=== PATIENT | female | born 1980 | race Caucasian/White ===

== ENCOUNTER → 2017-04-17 | Outpatient (CLI) | payer BC ==
[~2017-04-17] MED LIST: ALBU8I INH; AZIT250T3 PO; MULT-65 PO; NORE0.3514 PO
== END ==
LOC: HPND 08:54
PROVIDERS: ATTEND Obstetrics & Gynecology
DX: O09.521 Supervision of elderly multigravida, first trimester (principal); O99.211 Obesity complicating pregnancy, first trimester
CPT/HCPCS: 76813

== ENCOUNTER → 2017-06-05 | Outpatient (CLI) | payer BC | LOC: HPND 07:29 | PROVIDERS: ATTEND Obstetrics & Gynecology | DX: O09.522 Supervision of elderly multigravida, second trimester (principal); O26.892 Other specified pregnancy related conditions, second trimester; O99.212 Obesity complicating pregnancy, second trimester; E66.01 Morbid (severe) obesity due to excess calories; Z68.41 Body mass index [BMI] 40.0-44.9, adult | CPT/HCPCS: 76811 ==

== ENCOUNTER → 2017-06-17 | Outpatient (CLI) | payer BC | LOC: CDED 15:26 | DX: O24.419 Gestational diabetes mellitus in pregnancy, unspecified control (principal) | CPT/HCPCS: 97802 ==

== ENCOUNTER → 2017-07-11 | Outpatient (CLI) | payer BC | LOC: HPND 09:32 | PROVIDERS: ATTEND Obstetrics & Gynecology | DX: O09.522 Supervision of elderly multigravida, second trimester (principal); O99.212 Obesity complicating pregnancy, second trimester; E66.01 Morbid (severe) obesity due to excess calories; Z68.41 Body mass index [BMI] 40.0-44.9, adult; O26.892 Other specified pregnancy related conditions, second trimester | CPT/HCPCS: 76816 ==

== ENCOUNTER 2017-10-10 12:45 | Inpatient (IN) ==
[2017-10-10 14:03] LABS: Baso % (Auto) 0.2 % (0.0-2.0); Eos # (Auto) 0.1 th/mm3 (0.0-0.4); Eos % (Auto) 1.1 % (0.0-4.0); Hematocrit 32.5 % (35.0-46.0); Hemoglobin 10.9 gm/dL (11.6-15.3); Lymph # (Auto) 0.8 th/mm3 (1.0-4.8); Lymph % (Auto) 6.8 % (9.0-44.0); Mean Corpuscular HGB Conc 33.5 % (32.0-36.0); Mean Corpuscular Hemoglobin 28.5 pg (27.0-34.0); Mean Corpuscular Volume 85.2 fL (80.0-100.0); Mean Platelet Volume 10.1 fL (7.0-11.0); Mono # (Auto) 0.6 th/mm3 (0.0-0.9); Mono % (Auto) 5.5 % (0.0-8.0); Neut # (Auto) 10.1 th/mm3 (1.8-7.7); Neut % (Auto) 86.4 % (16.0-70.0); Platelet Count 68 th/mm3 (150-450); Red Blood Count 3.81 mil/mm3 (4.00-5.30); Red Cell Distribution Width 15.7 % (11.6-17.2); White Blood Count 11.7 th/mm3 (4.0-11.0)
[2017-10-10 14:13] LABS: Bacteria,Urine Moderate /hpf; Bilirubin,Urine Negative (Negative); Clarity,Urine Cloudy (Clear); Color,Urine Yellow (Yellw/Straw); Glucose,Urine (UA) Negative (Negative); Leukocyte Esterase,Urine Large (Negative); Nitrite,Urine Negative (Negative); Specific Gravity,Urine 1.008 (1.002-1.035); Squamous Epithelial Cell,Urine 14 /hpf (0-5)
[2017-10-10 14:22] LABS: Alanine Aminotransferase 71 U/L (10-53); Albumin 2.3 g/dL (3.4-5.0); Aspartate Aminotransferase 56 U/L (15-37)
[2017-10-10 14:23] LABS: Alkaline Phosphatase 139 U/L (45-117); Total Protein 6.7 g/dL (6.4-8.2)
[2017-10-10 14:28] LABS: Platelet Morphology Normal (Normal)
[2017-10-10] MEDS ORDERED: Succinylcholine Inj 100 MG/5 ML Syringe IV.PUSH ONE (14:34)
[2017-10-10] MEDS ORDERED: Lidocaine PF 1% Inj 5 ML Syringe INFILTRATN ONE (14:34)
[2017-10-10] MEDS ORDERED: Phenylephrine/NS 1000 MCG/10ML Syringe IV.PUSH ONE (14:34)
[2017-10-10] MEDS ORDERED: Labetalol HCl Inj 100 MG/20 ML Vial ONE (15:00)
[2017-10-10] MEDS ORDERED: Mag Sulf/Water 4 gm/100 ml 100 ML IV.SIG ONE ×2 (15:01→15:15)
[2017-10-10] MEDS ORDERED: Mag Sulf/Water 40 gm/1000 ml 40 GM/1,000 ML BAG IV.CONT ONE (15:02)
--- NOTE | 2017-10-10 15:12 | MH ---
cc: Ulysses Narvaez MD DATE OF ADMISSION: 10/10/2017 ADMITTING DIAGNOSES: 1. 38 weeks. 2. Severe preeclampsia. 3. Gestational diabetes. 4. Chronic hypertension. 5. Morbid obesity. 6. Advanced maternal age. HISTORY OF PRESENT ILLNESS: The patient is a 37-year-old white female, para 0, with a LMP of 01/17/2017, EDC of 10/24/2017. The patient's initial visit, blood pressure was elevated. She was treated with Aldomet with good control throughout the . She was diagnosed with gestational diabetes and has had good control with diet. Her first TM screen and cell-free DNA testing were normal. She has had a rise in blood pressure over the last 3 days. Her PIH labs done on 09/26/2017 were normal. She returned for her BPP today, which was normal of 11/20. Her LFTs from 10/08/2017 showed elevated ALT, AST. Platelet count of 67 had been 140+ 2 weeks ago. She is now admitted for delivery and rechecking of labs. ADDITIONAL PAST MEDICAL HISTORY AND PREVIOUS SURGERY: Cardiac ablation for WPW. ALLERGIES: NONE. TRANSFUSIONS: None. MEDICATIONS: Aldomet 500 mg b.i.d., vitamins, iron. SOCIAL HISTORY: She is . She is employed at [employer]. Alcohol, tobacco and drugs are none. FAMILY HISTORY: Noncontributory. REVIEW OF SYSTEMS: Negative. PHYSICAL EXAMINATION: GENERAL: She is a well-nourished, well-developed white female. VITAL SIGNS: Stable. Blood pressure 142/90, weight 334 pounds, height is 5 feet 10 inches. HEENT: Normal. CHEST: Clear. BREASTS: Symmetrical. ABDOMEN: Enlarged, obese, gravid. PELVIC: Cervix long, thick, and closed. Vertex ballottable. EXTREMITIES: Normal with 1+ edema. NEUROLOGIC: Reflexes normal. ASSESSMENT: As above. PLAN: She is now admitted for delivery by due to her illness, unfavorable cervix and suspected macrosomia. The risks and benefits and complications explained and accepted. Ulysses Narvaez MD [facility]/ , 02:52 PM , 02:59 PM [employer]
[2017-10-10] MEDS ORDERED: Labetalol HCl Inj 100 MG/20 ML Vial IV.PUSH ONE (15:30)
[2017-10-10] MEDS ORDERED: Calcium Chloride Inj 1 GM/10 ML Syringe IV.PUSH PRN (15:31)
[2017-10-10] MEDS ORDERED: Labetalol HCl Inj 100 MG/20 ML Vial IV.PUSH PRN (15:40)
[2017-10-10] MEDS: Mag Sulf/Water 40 gm/1000 ml 40 GM/1,000 ML BAG IV.CONT SCH (15:40)
[2017-10-10 15:58] LABS: Calcium 8.6 mg/dL (8.5-10.1); Chloride 109 meq/L (98-107); Glomerular Filtration Rate Greater Than 89 mL/min (>89); Glucose,Random 75 mg/dL (74-106); Potassium 4.1 meq/L (3.5-5.1); Sodium 140 meq/L (136-145)
[2017-10-10 15:59] LABS: Anion Gap 12 meq/L (5-15); Blood Urea Nitrogen 11 mg/dL (7-18); Carbon Dioxide 19.1 meq/L (21.0-32.0)
[2017-10-10] MEDS ORDERED: Citric Acid/Sodium Citrate Liq 30 ML UDC ONE (17:17)
[2017-10-10] MEDS ORDERED: ceFAZolin 2 GM Premix Inj 2 GM/100 ML BAG IV.SIG SCH (17:50)
[2017-10-10] MEDS ORDERED: Citric Acid/Sodium Citrate Liq 30 ML UDC PO SCH (18:00)
[2017-10-10] MEDS ORDERED: fentaNYL Citrate Inj 100 MCG/2 ML Ampul ONE (18:19)
[2017-10-10] MEDS ORDERED: HYDROmorphone PF Inj 2 MG/ML Vial ONE (18:19)
[2017-10-10] MEDS ORDERED: Oxytocin 30 Units/500ml Premix 30 UNITS/500 ML BAG IV.SIG ONE (18:41)
[2017-10-10] MEDS ORDERED: Senna/Docusate Sodium 8.6/50 MG Tablet PO PRN (18:41)
[2017-10-10] MEDS ORDERED: Simethicone 80 MG Chew Tablet PO PRN (18:41)
[2017-10-10] MEDS ORDERED: HYDROmorphone PF Inj 1 MG/ML Ampul IV.PUSH ONE ×2 (18:44→21:17)
[2017-10-10] MEDS ORDERED: Naloxone Inj 0.4 MG/ML Vial IV.PUSH PRN ×2 (18:44→21:17)
[2017-10-10] MEDS ORDERED: HYDROmorphone PCA Inj 6 MG/30 ML PCA.VIAL PCA ONE (19:43)
--- NOTE | 2017-10-10 19:48 | MP ---
cc: Ulysses Narvaez MD DATE OF OPERATION: 10/10/2017 PREOPERATIVE DIAGNOSES: 1. , 38 weeks. 2. Severe preeclampsia. 3. Gestational diabetes. 4. Chronic hypertension. 5. Morbid obesity. 6. Advanced paternal age, 35. POSTOPERATIVE DIAGNOSES: 1. , 38 weeks. 2. Severe preeclampsia. 3. Gestational diabetes. 4. Chronic hypertension. 5. Morbid obesity. 6. Advanced paternal age, 35. 7. Delivered. PROCEDURE PERFORMED: Primary low transverse section. ANESTHESIA: General endotracheal. SURGEON: Ulysses Narvaez MD CATERPILLAR DRIVER: Lauren. SECOND MEDICAL SCREENER: Chelsea. ESTIMATED BLOOD LOSS: 800 mL FLUIDS: 2.2 liters crystalloid. OBJECTIVE FINDINGS: The patient was prepared for delivery. Bladder was drained by Rowell catheterization. Abdomen was prepped and draped with a panniculus suspension in place and ready to proceed. She received general endotracheal anesthesia, the abdomen was opened through a Pfannenstiel incision using a knife to cut down through skin to the fascia. The fascia opened transversely, stripped from the muscles, rectus muscle split in the midline and the peritoneum opened sharply without incident. The bladder flap was taken down sharply and retracted inferiorly with the Luis Miguel blade. The lower uterine segment was incised transversely with a knife and extended with blunt dissection. There was clear fluid. Baby was in the LOT position. The vacuum extractor was applied to the occiput and used to gently lift the head through the abdominal wound. Mouth was suctioned. The cord clamped and cut. The baby was passed to awaiting team, a viable vigorous female, Apgars were 7 and 9, weight 7 pounds 11 ounces. Cord blood sent for typing, sent for donation and the uterine cavity cleaned with laps. Uterus was exteriorized and closed in 2 layers with a running suture, first with a running locking stitch of 0 Vicryl, second with a running imbricating stitch of Vicryl. On posterior inspection, the uterus, tubes, ovaries were normal in the uterus cavity. Irrigation was performed. No bleeding was evident and the bladder flap was closed with running stitch of 3-0 Vicryl. All laps and retractors were removed. Counts were correct. The anterior peritoneum closed with running stitch of 2-0 Vicryl, the fascia closed with #1 PDS running corner to midline and tied, subcutaneous irrigated with good hemostasis. The subcutaneous was closed with a running 3-0 Vicryl, the skin with subcuticular 3-0 Monocryl. Dermabond covered, dry dressing covered and the patient was awakened and taken to the recovery room in good condition. MD MOLLY Paredes/ct , 06:49 PM , 06:59 PM
[2017-10-10] MEDS ORDERED: Zolpidem Tartrate 5 MG Tablet PO PRN (21:00)
[2017-10-10] MEDS ORDERED: HYDROmorphone PCA Inj 6 MG/30 ML PCA.VIAL PCA PRN (21:17)
[2017-10-10] MEDS: HYDROmorphone PCA Inj 6 MG/30 ML PCA.VIAL PCA PRN (21:27)
[2017-10-10 23:07] LABS: Amphetamine Screen,Urine Neg (Neg); Barbiturate Screen,Urine Neg (Neg); Cannabinoid Screen,Urine Neg (Neg); Cocaine Screen,Urine Neg (Neg)
[2017-10-10 23:12] LABS: Opiate Screen,Urine Neg (Neg)
[2017-10-10] MEDS ORDERED: Oxytocin 30 Units/500ml Premix 30 UNITS/500 ML BAG IV.SIG PRN (23:41)
[2017-10-11] MEDS: HYDROmorphone PCA Inj 6 MG/30 ML PCA.VIAL PCA PRN (02:04)
--- NOTE | 2017-10-11 09:51 | ECG ---
Date Performed: 10/10/2017 Time Performed: 15:45:31 PTAGE: 37 years EKG: Sinus rhythm NORMAL ECG Since the PREVIOUS TRACING , no significant change noted PREVIOUS TRACIN12/18/1999 11.14 DOCTOR: Darron Hidalgo Interpretating Date/Time 10/11/2017 09:49:43
[2017-10-11 10:12] LABS: Baso % (Auto) 0.3 % (0.0-2.0); Eos # (Auto) 0.1 th/mm3 (0.0-0.4); Eos % (Auto) 1.4 % (0.0-4.0); Hematocrit 22.2 % (35.0-46.0); Hemoglobin 7.7 gm/dL (11.6-15.3); Lymph # (Auto) 0.8 th/mm3 (1.0-4.8); Lymph % (Auto) 8.1 % (9.0-44.0); Mean Corpuscular HGB Conc 34.7 % (32.0-36.0); Mean Corpuscular Hemoglobin 29.4 pg (27.0-34.0); Mean Corpuscular Volume 84.6 fL (80.0-100.0); Mono # (Auto) 0.6 th/mm3 (0.0-0.9); Mono % (Auto) 6.2 % (0.0-8.0); Neut # (Auto) 8.1 th/mm3 (1.8-7.7); Platelet Count 60 th/mm3 (150-450); Red Blood Count 2.63 mil/mm3 (4.00-5.30); Red Cell Distribution Width 15.8 % (11.6-17.2); White Blood Count 9.6 th/mm3 (4.0-11.0)
[2017-10-11 10:40] LABS: Platelet Morphology Normal (Normal)
[2017-10-11 10:50] LABS: Alanine Aminotransferase 61 U/L (10-53); Alkaline Phosphatase 103 U/L (45-117); Anion Gap 8 meq/L (5-15); Aspartate Aminotransferase 48 U/L (15-37); Blood Urea Nitrogen 8 mg/dL (7-18); Calcium 6.9 mg/dL (8.5-10.1); Carbon Dioxide 23.6 meq/L (21.0-32.0); Chloride 105 meq/L (98-107); Glomerular Filtration Rate Greater Than 89 mL/min (>89); Glucose,Random 79 mg/dL (74-106); Potassium 4.3 meq/L (3.5-5.1); Sodium 137 meq/L (136-145); Uric Acid 5.4 mg/dl (2.6-6.0)
[2017-10-11 10:52] LABS: Total Protein 5.5 g/dL (6.4-8.2)
[2017-10-11] MEDS: Mag Sulf/Water 40 gm/1000 ml 40 GM/1,000 ML BAG IV.CONT SCH ×2 (11:20→16:10)
[2017-10-11 15:18] LABS: Baso % (Auto) 0.1 % (0.0-2.0); Eos # (Auto) 0.1 th/mm3 (0.0-0.4); Eos % (Auto) 1.7 % (0.0-4.0); Lymph # (Auto) 0.6 th/mm3 (1.0-4.8); Lymph % (Auto) 7.2 % (9.0-44.0); Mean Corpuscular HGB Conc 33.6 % (32.0-36.0); Mean Corpuscular Hemoglobin 28.8 pg (27.0-34.0); Mean Corpuscular Volume 85.6 fL (80.0-100.0); Mean Platelet Volume 9.2 fL (7.0-11.0); Mono # (Auto) 0.5 th/mm3 (0.0-0.9); Mono % (Auto) 6.5 % (0.0-8.0); Neut # (Auto) 6.9 th/mm3 (1.8-7.7); Neut % (Auto) 84.5 % (16.0-70.0); Platelet Count 62 th/mm3 (150-450); Red Blood Count 2.32 mil/mm3 (4.00-5.30); White Blood Count 8.2 th/mm3 (4.0-11.0)
[2017-10-11 15:21] LABS: Hemoglobin 6.7 gm/dL (11.6-15.3)
[2017-10-11 15:22] LABS: Hematocrit 19.9 % (35.0-46.0)
[2017-10-11 15:53] LABS: Platelet Morphology Normal (Normal); RBC Morphology Normal (Normal)
[2017-10-11] MEDS ORDERED: Measles/Mumps/Rubella Vaccine Inj 0.5 ML Vial SQ ONE (16:00)
[2017-10-11] MEDS ORDERED: Diphtheria/Tetanus/Pertussis Vaccine Inj 0.5 ML Syringe IM ONE (16:00)
[2017-10-11] MEDS: oxyCODONE/Acetaminophen 10/325 Tablet PO PRN ×2 (18:19→23:34)
[2017-10-12 00:26] VITALS: O2SAT 99
[2017-10-12] MEDS: oxyCODONE/Acetaminophen 10/325 Tablet PO PRN ×2 (07:26→12:25)
[2017-10-12 09:19] LABS: Baso % (Auto) 0.2 % (0.0-2.0); Eos # (Auto) 0.2 th/mm3 (0.0-0.4); Eos % (Auto) 1.9 % (0.0-4.0); Hematocrit 24.7 % (35.0-46.0); Hemoglobin 8.4 gm/dL (11.6-15.3); Lymph # (Auto) 0.8 th/mm3 (1.0-4.8); Lymph % (Auto) 8.1 % (9.0-44.0); Mean Corpuscular Hemoglobin 29.4 pg (27.0-34.0); Mean Corpuscular Volume 86.7 fL (80.0-100.0); Mean Platelet Volume 9.1 fL (7.0-11.0); Mono # (Auto) 0.6 th/mm3 (0.0-0.9); Mono % (Auto) 6.6 % (0.0-8.0); Neut # (Auto) 8.1 th/mm3 (1.8-7.7); Neut % (Auto) 83.2 % (16.0-70.0); Platelet Count 70 th/mm3 (150-450); Red Blood Count 2.85 mil/mm3 (4.00-5.30); Red Cell Distribution Width 15.5 % (11.6-17.2); White Blood Count 9.8 th/mm3 (4.0-11.0)
[2017-10-12 10:49] LABS: Platelet Morphology Normal (Normal)
[2017-10-13 06:43] LABS: Baso % (Auto) 0.3 % (0.0-2.0); Eos # (Auto) 0.2 th/mm3 (0.0-0.4); Eos % (Auto) 1.8 % (0.0-4.0); Hematocrit 23.7 % (35.0-46.0); Hemoglobin 8.2 gm/dL (11.6-15.3); Lymph # (Auto) 0.8 th/mm3 (1.0-4.8); Lymph % (Auto) 8.2 % (9.0-44.0); Mean Corpuscular HGB Conc 34.8 % (32.0-36.0); Mean Corpuscular Hemoglobin 29.7 pg (27.0-34.0); Mean Corpuscular Volume 85.3 fL (80.0-100.0); Mean Platelet Volume 8.7 fL (7.0-11.0); Mono # (Auto) 0.4 th/mm3 (0.0-0.9); Mono % (Auto) 4.9 % (0.0-8.0); Neut # (Auto) 7.8 th/mm3 (1.8-7.7); Neut % (Auto) 84.8 % (16.0-70.0); Platelet Count 70 th/mm3 (150-450); Red Blood Count 2.78 mil/mm3 (4.00-5.30); Red Cell Distribution Width 15.7 % (11.6-17.2); White Blood Count 9.2 th/mm3 (4.0-11.0)
[2017-10-13 07:06] LABS: Total Protein 5.6 g/dL (6.4-8.2)
[2017-10-13 09:48] LABS: Lymphocytes 6 % (9-44); Metamyelocytes 1 % (0-1); Monocytes 4 % (0-8)
[2017-10-13 09:49] LABS: Platelet Morphology Normal (Normal); Polychromasia 2.7 % (0.0-1.9)
[2017-10-13 15:17] VITALS: BP 134/79
[2017-10-13 15:18] VITALS: PULSE 85; RESP 14; TEMP 98.9
== END 2017-10-13 14:35 | disposition home or self-care (01) ==
LOC: HOBED 12:45 → H2E 14:33 → H1EA 10-12 12:47
PROVIDERS: ADMIT Obstetrics & Gynecology; ATTEND Obstetrics & Gynecology